=== PATIENT | male | born 1990 | race African-American/Black ===

== ENCOUNTER 2019-05-29 17:37 | Inpatient (IN) | payer OTHER ==
[~2019-05-29] VITALS: Ht 172.7 cm; Wt 33.1 kg
[2019-05-29 18:17] VITALS: BP 146/67
[2019-05-29 18:27] LABS: URINE BILIRUBIN 2+ (Negative); URINE BLOOD 1+ (Negative); URINE CLARITY CLEAR; URINE COLOR YELLOW; URINE GLUCOSE-RANDOM* NEGATIVE (Negative); URINE KETONES 2+ (Negative); URINE LEUKOCYTES-REFLEX NEGATIVE (Negative); URINE NITRITE-REFLEX POSITIVE (Negative); URINE PROTEIN (DIPSTICK) 1+ (Negative)
[2019-05-29 18:32] LABS: ICTOTEST (BILI CONFIRMATORY) Positive (Negative)
[2019-05-29 19:01] LABS: BACTERIA-REFLEX None Seen /HPF (None Seen); CRYSTALS None Seen /LPF (None Seen); SQUAMOUS 0-3 Few /LPF (0-3); URINE RBC None Seen /HPF (0-2); URINE WBC-REFLEX None Seen /HPF (0-5)
[2019-05-29 19:07] LABS: BASOPHILS 0.3 % (0.0-2.0); RBC 1.89 mil/uL (4.50-6.00)
[2019-05-29 19:09] LABS: ABSOLUTE NEUTROPHILS 11.1 thou/uL (1.4-8.2); EOSINOPHILS 0.6 % (0.0-3.0); LYMPHOCYTES 22.1 % (24.0-44.0); MCH 30.5 pg (26.0-34.0); MCHC 33.9 g/dL (28.0-37.0); MONOCYTES 10.2 % (1.0-8.0); PLATELET COUNT 292 thou/uL (150-400); POLYS 66.8 % (36.0-66.0); RDW 13.4 % (10.5-14.5); WBC 16.6 thou/uL (4.0-11.0)
[2019-05-29 19:18] LABS: HEMOGLOBIN 5.8 gm/dL (14.0-18.0)
[2019-05-29 19:24] LABS: CALCIUM 9.3 mg/dL (8.5-10.1); CREATININE 0.9 mg/dL (0.7-1.3); POTASSIUM 3.6 mmol/L (3.5-5.1)
[2019-05-29 19:28] LABS: ALBUMIN 3.9 g/dL (3.4-5.0); DIRECT BILIRUBIN 1.7 mg/dL (<0.1-0.3); TOTAL BILIRUBIN 6.8 mg/dL (<0.1-1.0); TOTAL PROTEIN 7.9 g/dL (6.4-8.2)
[2019-05-29 19:43] LABS: PROTIME 10.7 Seconds (9.3-11.4)
[2019-05-29 21:08] LABS: ABSOLUTE RETIC COUNT 0.078 10^6/uL; OBSERVED RETIC COUNT 4.08 % (0.6-2.6)
[2019-05-29 21:18] VITALS: BP 138/57
[2019-05-29] MEDS ORDERED: IBUPROFEN200 M1 PO (21:32)
[2019-05-29 21:50] VITALS: BP 135/59
[2019-05-30] VITALS (8 sets, daily range): BP systolic 110–132; BP diastolic 39–59
--- NOTE | 2019-05-30 04:27 | NUR ---
PATIENT ADMITTED AT 2156 TO UNIT, DAY NURSE COMPLETED ADMISSION. I TOOK OVER CARE OF PATIENT AT 2300. CONFIRMED PATIENT'S IDENTITY AND PLACED ARM BAND. AN ORDER EXISTS TO GET ONE UNIT OF PRBC. AFTER TYPE AND SCREEN, BLOOD LAB CALLED TO SAY THEY NEEDED TO GET BLOOD FROM THE [facility]. STILL WAITING FOR NEWS OF BLOOD AVAILABILITY. RECEIVED ORDERS FROM DR MARTELL ABOUT BLOOD DRAW. PATIENT'S CXR AND US OF ABDOMEN WERE BOTH NEGATIVE FOR ACUTE PROCESSES.
[2019-05-30 06:53] LABS: % SATURATION 101 % (20-39); IRON 250 ug/dL (65-175); TIBC 247 ug/dL (250-450)
[2019-05-30 07:24] LABS: FOLIC ACID 16.4 ng/mL (8.6-58.9)
--- NOTE | 2019-05-30 11:33 | NUR ---
ASSUMED CARE OF PT APPROX 0715, REPORTS OF HEADACHE AND BLURRY VISION EARLY A.M., PT IS A&0X4, HEADACHE SLIGHTLY BETTER, FAMILY AT BEDSIDE, REQ LIGHTS OFF, SLIGHTLY SOA W/EXERTION, REPORTS OF BLOOD AWAITING RECEIPT/TRANSFUSION THEN OVERHEAD MORNING PHYSICIAN MENTION HOLDING OFF ON THE BLOOD D/T COMPATIBILITY ISSUES WELL PT'S RBC CONDITION. GAVE PT COOL CLOTH, IBUPROFEN PROPHYLACTICALLY ALONG WITH ZOFRAN FOR SAME REASON. ENCOURAGED HIM TO CALL FOR ANY NEEDS, SEE SEPARATE INTERVENTIONS FOR ASSESSMENTS
--- NOTE | 2019-05-30 15:29 | NUR ---
PHYSICIAN CONTACT: ASKED IF HE NEEDS ICU BEING HEMODYNAMICALLY COMPROMISED; AWAITING ORDERS, IF APPLICABLE
[2019-05-30 16:06] LABS: HAV IgM AB (ANTI-HAV IgM) Negative (Negative); HEPATITIS B SURFACE AG Negative (Negative); HEPATITIS C VIRUS AB 0.1 (0.0-0.9)
--- NOTE | 2019-05-30 16:46 | NUR ---
CONSULT: DR. JEFFERSON CALLED JUST NOW TO SAY SHE IS NOT CERTIFIED CAREGIVER. CALLED ANSWERING SERVICE FOR DR. SUKHDEEP AMAYA AND GAVE ALL VITAL INFO FOR CONSULT TODAY
--- NOTE | 2019-05-30 18:41 | NUR ---
UPDATE ON PT/ACTIVITIES THIS AFTERNOON THROUGH EVENING. FAMILY BECOMING IRATE WITH NOT HAVING ANY ANSWERS, EXPLAINED LABS/DIAGNOSTICS ORDERED FOR ALL INFO TO BE AVAILABLE FOR ACCURATE DX/TREATMENT. NEURO CALLED, DR. JEFFERSON, TO SAY SHE WASN'T SALES TRADER, LATE IN THE AFTERNOON (SEE PREV NOTE) CALLED DR. AMAYA AND HE CAME WITHIN THE HOUR.SAW PT, ENTERED ORDERS INCL A STAT MRI. MRI CALLED TO SAY THEY WERE CLOSING UP SHOP, EXPLAINED PT'S WORSENING CONDITION (I.E. HEADACHE, LEFT EYE SWOLLEN, EMESIS X 3, CHILLS, SHAKING) AND HE STATED THEY COULDN'T DO OT. GAVE THE PHONE TO ORDERING PHYSICIAN. HE ASKED HIM TO COME. FAXED MRI SCREENING. PT RECEIVED ZOFRAN FOR HIS SECOND BOUT OF EMESIS. MRI SHOWED UP ABOUT 12-15 MIN LATER WHILE PT HAD A THIRD BOUT OF EMESIS AND ADAMANTLY STATED THE RISK OF ASPIRATION WHILE LYING FLAT WAS GREAT. IT WOULD HAVE TO BE DONE IN THE A.M. NEUROLOGY AWARE/RESIGNED. CALLED DR. ORDAZ TO ASK IF PT NEEDED MORE ATTN IN ICU. HE CALLED BACK AND ASKED FOR DETAILS TO GET A CURRENT PICTURE. NURSE CALLED HOUSE SUPV TO LET HER KNOW RADIOLOGY NEEDED TO BE CALLED BACK TO DO THE ORDERED STAT MRI AND IF NOT, TO CALL DR ORDAZ W/REASON WHY NOT PERFORMED. WILL LET FAMILY AND AWNINGS MECHANIC KNOW WHERE WE STAND AT THE MOMENT.
[2019-05-30 23:46] LABS: HEMATOCRIT 9.6 % (42.0-52.0); HEMOGLOBIN 3.1 gm/dL (14.0-18.0)
[2019-05-31] VITALS (29 sets, daily range): BP systolic 96–136; BP diastolic 38–95
[2019-05-31 08:05] LABS: WBC 22.8 thou/uL (4.0-11.0)
[2019-05-31 08:08] LABS: ABSOLUTE RETIC COUNT 0.093 10^6/uL; MCH 30.2 pg (26.0-34.0); MCHC 32.8 g/dL (28.0-37.0); MCV 92.3 fL (80.0-100.0); OBSERVED RETIC COUNT 6.87 % (0.6-2.6); RBC 1.35 mil/uL (4.50-6.00)
[2019-05-31 08:22] LABS: HEMATOCRIT 12.5 % (42.0-52.0); HEMOGLOBIN 4.1 gm/dL (14.0-18.0)
--- NOTE | 2019-05-31 08:22 | NUR ---
RECEIVED PT IN ICU 246. SEE [facility] FOR ASSESSMENT. PT DENIES PAIN,OR HEADACHE, NO N/V. MONITOR SHOWS ST. TMAX 98.9 AX. BLOOD INFUSED WITHOUT S/S OF REACTION. DOSE OF SOLUMEDROL IVPB OVER AN HOUR GIVEN WELL. CONCERN WITH DROOP OF LT EYELID. PUPIL ENLARGED/SLUGGISH. CONT TO HAVE DOUBLE VISION. CT DONE EARLIER. NO OTHER NEURO DEFICITS NOTED. 24HOUR URINE COLLECTION STARTED. PT STATES HE FEELS MUCH BETTER AFTER PRBC INFUSED. CONT TO MONITOR
[2019-05-31 08:29] LABS: ALBUMIN 3.5 g/dL (3.4-5.0); CALCIUM 8.6 mg/dL (8.5-10.1); CREATININE 0.7 mg/dL (0.7-1.3); POTASSIUM 4.4 mmol/L (3.5-5.1); TOTAL BILIRUBIN 4.2 mg/dL (<0.1-1.0); TOTAL PROTEIN 6.9 g/dL (6.4-8.2)
--- NOTE | 2019-05-31 09:22 | HC ---
[facility] [place] [address] CONSULTATION Name: GORGE MEDLEY Room #: 246-P ADM IN M.R.#: [id number] Admission: 05/29/19 Attend Phys: Gorge French MD Discharge: Date of : 86 Report #: [id number] THIS REPORT FOR: //name// CC: [facility] physician/PCP Gorge French MD REASON FOR CONSULTATION: Anemia and jaundice. HISTORY OF PRESENT ILLNESS: The patient is a very pleasant 28-year-old gentleman who was doing fine until about 4 days ago on Tuesday when he developed some fevers and chills and flu-like symptoms. The next day on Tuesday or 3 days ago, he noticed dark urine and continued feeling worse and he has felt progressively more tired and having intermittent chills. He thinks may be they are better today. Here in the hospital, he was found to have a hemoglobin that was quite low at about 5.8. Total bilirubin was elevated above 9. LDH was also elevated. White count slightly elevated, but no acute forms. Platelets are normal range. Rest of his chemistries looked good. Iron levels are slightly elevated, but that may be from an inflammatory reaction. The patient denies weight loss, other illnesses, any travel, any drug exposure. PAST MEDICAL HISTORY: Very unremarkable. FAMILY HISTORY: Mother is battling breast cancer. 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 He has I believe with his significant other/ in the room and also a 7-month-old, I believe it is a daughter. PHYSICAL EXAMINATION: GENERAL: The patient appears his stated age. VITAL SIGNS: Temperature 100.7 last night, pulse is 98, respirations 18, O2 sat 99%, height 5 feet 8 inches, 172.7 cm. Weight 165 pounds or 75 kilograms. HEENT: ____ does also describe blurry vision when both eyes are open, but not when each one is open. This almost makes the orbits double vision, will consult Neurology. The patient's oropharynx is clear. His sclerae are slightly icteric. LYMPHATICS: No enlarged lymph nodes in the supraclavicular, cervical, axillary region. ABDOMEN: Without masses, nontender. EXTREMITIES: Without clubbing, cyanosis or edema. ASSESSMENT AND PLAN: 1. Hemolytic anemia. Blood bank tests are not yet back, but appears to be antibody positive, but we do not know if it is a direct Anitra or IgG at this point. The patient was given Solu-Medrol yesterday. We will continue [address] [address] CONSULTATION Name: JASMYNEGORGE Room #: 246-P [facility] IN M.R.#: [id number] Admission: 05/29/19 Attend Phys: Gorge French MD Discharge: Date of : 86 Report #: [id number] prednisone 80 mg. The patient has a weight of about 75 kilograms. We will also add folate. We will check for malignant causes such as by flow cytometry and CAT scan and serum protein electrophoresis. We will also ask for cold agglutinin titers. 2. We would consider transfusion if the patient's ____, which he is not doing, so would probably lean away from transfuse at this time. We will check serial lab work. Encouraged hydration. 3. Prophylaxis. We will add PPI since the patient will be on steroids. The patient is aware that most of time this turns around, but then occasionally it does not and this can be very serious. He had several questions, which were answered. <ELECTRONICALLY SIGNED> By: Fan Forrest MD 05/31/19 0922 1002 [id number] Fan Forrest MD /nt
--- NOTE | 2019-05-31 10:48 | NUR ---
REFERRAL TO TRANSFER PT TO [facility] FACILITY, [facility], [facility], [facility]. [facility] DECLINES PT IS WITHOUT MEDICAL INSURANCE AND RESIDES IN [place]. [facility] TRANSFER CENTER INDICATES CURRENTLY CLOSED TO TRANSFERS BUT WILLING TO LOOK AT REFERRAL. [facility] TRANSFER CENTER ACCEPTED REFERRAL AND RADIOLOGY WAS [facility] FOR [facility]. [facility] GIVEN CM AND DR. ORDAZ CONTACTS. ALSO FAXED REFERRAL TO [facility] WITH CM AND MD CONTACTS. RN UPDATED.
--- NOTE | 2019-05-31 11:20 | NUR ---
ST RECEIVED ORDERS FOR BEDSIDE SWALLOW AND SPEECH EVAL FROM DR ORDAZ. RN, JOSE REPORTS THE PATIENT IS DOING MUCH BETTER THIS MORNING AND NO LONGER NEEDS EVALUATION. HE IS CURRENTLY ON A REGULAR DIET AND TOLERATING WELL. ST WILL HOLD OFF ON EVALUATION FOR NOW UNLESS THERE IS A CHANGE IN STATUS.
--- NOTE | 2019-05-31 12:06 | NUR ---
CM ASSESSMENT: PT ADMIT WITH FLU LIKE SYMPTOMS AND FOUND TO BE ANEMIC. HEME, ID, NEURO INVOLVED. PT IS ALERT AND ORIENTED X4. LIVES WITH SPOUSE AND THEY HAVE A CHILD. PT WORKS FT AND IS INDEPENDENT WITH ADLS. NO DME. PT STATES HE HAS MEDICAL INSURANCE BUT NO CARD AND SPOUSE PROVIDED REGISTRATION WITH [employer] POLICY NUMBER AND GROUP NUMBER, BUT DID NOT SHOW ON [employer] PORTAL. CHARGING PT'S CELL NOW AND HE WILL CALL HIS EMPLOYER TO PROIVDE PROOF OF INSURANCE. WORKING ON PHYSICIAN REQUEST FOR TRANSFER TO TERTIARY CARE FACILITY PER PREVIOUS NOTE.
--- NOTE | 2019-05-31 13:44 | NUR ---
I have reviewed the documentation by [employer]UM[employer] MARTIN from 05/31/19 to 05/31/19 and I concur with it. RUDI PELAYO
[2019-05-31 15:28] LABS: HEMATOCRIT 15.5 % (42.0-52.0)
[2019-05-31 16:27] LABS: MCH 30.8 pg (26.0-34.0); MCHC 33.2 % (28.0-37.0); MCV 92.8 fL (80.0-100.0); RBC 1.65 mil/uL (4.50-6.00); RDW 14.4 % (10.5-14.5); WBC 31.3 thou/uL (4.0-11.0)
--- NOTE | 2019-05-31 19:27 | NUR ---
ASSUMED CARE OF PT AT 0700, PT IS A/O TIMES FOUR, GCS 15. PT HAS RCVD A TOTAL OF 2 UNITS THIS SHIFT OF PRBC. VSS AND HAS BEEN AFIBRILE. ORDERS RCVD TO TRANSFER PT OUT TO A DIFFERENT ACUTE FACILITY. PT AGREES AND FAMILY NOTIFIED BY PT. REPORT CALLED AND GIVEN TO LEONARDO Senior NURSE FROM ACCEPTING FACILITY. TRANSPORTATION CALLED AND WERE HERE TO PICK PT ALREADY.
[2019-06-01 13:12] LABS: GLOBULIN TOTAL 2.8 g/dL (2.2-3.9); M-SPIKE Not Observed g/dL (Not Observed)
[2019-06-01 19:07] LABS: ANA INTERPRETATION Negative (())
--- NOTE | 2019-06-05 09:07 | PATH ---
[facility] [place] [address] PATHOLOGY RPT PROCEDURE Name: STANTON MEDLEY Room #: 246-P DIS IN M.R.#: [id number] Admission: 05/29/19 Date of : 86 Discharge: 05/31/19 Report #: [id number] Path Case #: [id number] [facility] Accession Number: [id number] . 01 Material submitted: . body - SEND OUT FLOW CYTOMETRY . 02 Diagnosis: Special studies report received from [facility], [address] [place] [address], [address], [place], [address], on case [id number], labeled with their number [id number], dated 06/01/2019. . Flow Cytometry: Hematologic Neoplasia Assessment . Clinical History Hemolytic anemia . Indication for Study Evaluation for anemia . Specimen Peripheral Blood . Viability 60% (7AAD exclusion) . Interpretation Peripheral Blood: - Minimal left shifted myeloid maturation and 0.2% circulating blasts. - No evidence for a B-cell or T-cell lymphoproliferative disorder. - Inverted T cells CD4:CD8 ratio (0.5:1) . Comments The slightly left shifted myeloid maturation and the inverted T cells CD4:CD8 ratio are likely reactive (immune mediated process, medication effect, etc.). Myeloproliferative and myelodysplastic disorders cannot be categorically confirmed or excluded by flow cytometric analysis. Correlation with available clinical, laboratory, and morphologic data is recommended. . The results should be considered in the context of decreased specimen integrity. . . Populations Analyzed Myeloid Blasts: 0.2% No significant abnormalities of the markers tested Lymphocytes: 13% B-cells: 1.0%, polytypic/polyclonal sIg light chain pattern [facility] [address] [place] [address] PATHOLOGY RPT PROCEDURE Name: STANTON MEDLEY Room #: 246-P DIS IN M.R.#: [id number] Admission: 05/29/19 Date of : 86 Discharge: 05/31/19 Report #: [id number] Path Case #: [id number] T-cells: no significant abnormalities of the markers tested CD4+ T-cells: 3.4% (including 0.0% CD57+ cells) CD8+ T-cells: 6.6% (including 0.7% CD57+ cells) CD4:CD8: 0.5 NK cells: 1.0% Neutrophils: 75% Small subset shows decreased CD10, CD13, CD16 and CD11b expression. Monocytes: 9% No significant abnormalities of the markers tested Eosinophils: 1% No relative increase Basophils: 0.2% No relative increase CD45 Negative 1% No significant reactivity with the markers tested Events/Debris: (may represent unlysed red blood cells, erythroid precursors, platelets, debris, etc.) . . Morphologic Evaluation A slide was reviewed for senior supplier quality engineer purposes only. . Specimen Description Total Cell Yield: 10.64 X 10 and 6 . Reagent(s) Used CD2, CD3, CD4, CD5, CD7, CD8, CD10, CD11b, CD13, CD14, CD16, CD19, CD20, CD33, CD34, CD38, CD45, CD56, CD57, CD64, CD117, HLA-DR, kappa, lambda . at [facility]. Chris Napoles MD Pathologist . Intended Use Flow cytometry is optimally used to immunophenotypically characterize abnormal populations when they are detected. Negative flow cytometry results do not exclude lymphoma or neoplasia. Possible false negative flow cytometry results may occur in, but are not limited to, the following: neoplastic cells in Hodgkin lymphoma are not typically adequately represented by routine clinical flow cytometry; neoplastic cells may be lost or inadequately represented due to degeneration, sample processing, sampling artifact, or patchy involvement; plasma cells are typically underrepresented by flow cytometry; immature cells/blasts may be underrepresented due to hemodilution; myeloproliferative disorders and low grade myelodysplasia may not have immunophenotypic abnormalities or increased blasts. Correlation with all available clinical, laboratory, and morphologic data is always necessary to assess for the possibility of false negative flow cytometry results and to establish a diagnosis. Each marker in this analysis was used to assess for potential antigenic abnormalities or to evaluate detected abnormalities. [address] [address] PATHOLOGY RPT PROCEDURE Name: STANTON MEDLEY Room #: 246-P DIS IN M.R.#: [id number] Admission: 05/29/19 Date of : 86 Discharge: 05/31/19 Report #: [id number] Path Case #: [id number] . Disclaimer(s) This test was performed at [facility]. at [address], [place], [address] - User Interface Engineer: Oneil Torres MD. [facility] is a business unit of [employer] a wholly-owned subsidiary of [employer]. . Any image or images that accompany this report are accounts receivable representative images only and should not be used to render a diagnosis. . This test was developed and its performance characteristics determined by [facility]. It has not been cleared or approved by the Food and Drug Administration (FDA). The FDA has determined that such clearance or approval is not necessary. . For inquiries, the physician may contact Lab: [phone] . A complete copy of the report is on file. . Professional services performed by [facility]. at [address], [place] [address]. Technical services performed by [facility]. at [address], [place] [address]. . (CLW:[email or web address] 06/01/2019) [facility] 06/04/[address] [place] [address] . 02 Electronically signed: . Renee Caba MD, Pathologist NPI- [id number] . 02 Pathologist provided ICD-10: D58.9 . 02 CPT . 858456 Specimen Comment: A courtesy copy of this report has been sent to [phone] Specimen Comment: Report sent to Specimen Comment: A duplicate report has been generated due to demographic updates. Performed at: [id number] [facility] [address], [place] [id number] MD Jacek Drummond MD Phone: [phone] Performed at: 02 [facility] [address] [place] [address] PATHOLOGY RPT PROCEDURE Name: STANTON MEDLEY Room #: 246-P DIS IN M.R.#: [id number] Admission: 05/29/19 Date of : 86 Discharge: 05/31/19 Report #: [id number] Path Case #: [id number] [facility] [address] [place] [id number] MD Ld Dhillon MD Phone: [phone]
== END 2019-05-31 20:02 | disposition short-term general hospital (02) | DRG 65 ==
LOC: ER 17:37 → 2N 20:25 → ICU 20:25 → EROBS 20:25 → 2N 21:38 → ICU 05-31 01:55
PROVIDERS: Emergency Medicine; Internal Medicine Hematology & Oncology; Nurse Practitioner Acute Care; Nurse Practitioner Family; Physician Assistant; Psychiatry & Neurology Neurology; ADMIT Internal Medicine
PROC: 30233N1 Transfusion of Nonautologous Red Blood Cells into Peripheral Vein, Percutaneous Approach (ICD-10-PCS; principal; 2019-05-31)
DX: I63.9 Cerebral infarction, unspecified (principal); D62 Acute posthemorrhagic anemia; R17 Unspecified jaundice; R65.10 Systemic inflammatory response syndrome (SIRS) of non-infectious origin without acute organ dysfunction; D58.9 Hereditary hemolytic anemia, unspecified; I67.82 Cerebral ischemia; B34.9 Viral infection, unspecified; M54.5 Low back pain; G89.29 Other chronic pain; F12.90 Cannabis use, unspecified, uncomplicated; F17.210 Nicotine dependence, cigarettes, uncomplicated; R74.0 Nonspecific elevation of levels of transaminase and lactic acid dehydrogenase [LDH]; H53.2 Diplopia; R11.10 Vomiting, unspecified; R79.89 Other specified abnormal findings of blood chemistry; G70.89 Other specified myoneural disorders; Z80.3 Family history of malignant neoplasm of breast; Z79.899 Other long term (current) drug therapy
CPT/HCPCS: 10081; 85076